=== PATIENT | female | born 1955 | race American Indian/Alaskan Native ===

== ENCOUNTER 2017-11-10 01:09 | Emergency (ER) | payer OTHER ==
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
--- NOTE | 2017-11-10 02:31 | Cat Scan Report ---
FINAL REPORT EXAM: CT HEAD/BRAIN WO CON HISTORY: fall TECHNIQUE: Routine axial imaging was obtained of the brain without IV contrast. FINDINGS: There is mild generalized atrophy. There no evidence of intracranial hemorrhage or infarct. The ventricular system is appropriate in size and is symmetric. The basal cisterns appear normal. The soft tissues reveal a large hematoma overlying the left pre frontal region of the skull extending over the left preseptal area. There is no evidence of skull fracture. The sinuses are clear. The mastoid air cells are well pneumatized IMPRESSION: Large left pre frontal and preseptal soft tissue hematoma. No skull fracture. Bdox-ey-koeknato atrophy. No evidence of intracranial hemorrhage or infarct.
[2017-11-10 02:40] LABS: Basophils % (Auto) 0.5 % (0.0-1.8); Eosinophils % (Auto) 0.4 % (0.0-4.3); Lymphocytes # (Auto) 2.2 K/mm3 (1.2-5.4); Lymphocytes % (Auto) 26.7 % (13.4-35.0); Mean Corpuscular HGB Conc 33 % (30-34); Mean Corpuscular Hemoglobin 35 pg (28-32); Mean Corpuscular Volume 105 fl (79-97); Monocytes # (Auto) 0.5 K/mm3 (0.0-0.8); Monocytes % (Auto) 5.5 % (0.0-7.3); Platelet Count 317 K/mm3 (140-440); Red Blood Count 3.72 M/mm3 (3.65-5.03); Red Cell Distribution Width 13.1 % (13.2-15.2)
[2017-11-10 02:53] LABS: BUN/Creatinine Ratio 23; Blood Urea Nitrogen 9 mg/dL (7-17); Calcium 8.5 mg/dL (8.4-10.2); Hemolysis Index 7
--- NOTE | 2017-11-10 06:23 | XRay Report ---
FINAL REPORT EXAM: XR SHOULDER 2+V LT HISTORY: Lt shoulder pain TECHNIQUE: Three views of the left shoulder were obtained. FINDINGS: The AC joint and glenohumeral joint appear normal. The subacromial space appears normal. There is no evidence of fracture. The surrounding soft tissues otherwise are unremarkable. IMPRESSION: Within normal limits.
[2017-11-10] MEDS ORDERED: TYLENOL ONE (08:12)
[2017-11-10] MEDS ORDERED: TYLENOL PO ONE (08:18)
[2017-11-10 10:27] LABS: Bacteria,Urine 2+ /HPF (Negative); Bilirubin,Urine NEG (Negative); Blood,Urine SM (Negative); Color,Urine Yellow (Yellow); Mucus,Urine FEW /HPF; Protein,Urine <15 mg/dL mg/dL (Negative); Urobilinogen,Urine < 2.0 mg/dL (<2.0)
[2017-11-10 10:40] LABS: Amphetamine Screen,Urine PRESUMPTIVE NEGATIVE; Benzodiazepines Screen,Urine PRESUMPTIVE NEGATIVE; Cocaine Screen,Urine PRESUMPTIVE NEGATIVE; Methadone Screen,Urine PRESUMPTIVE NEGATIVE; Opiate Screen,Urine PRESUMPTIVE NEGATIVE
[2017-11-10 10:42] VITALS: BP 154/106
[2017-11-10 11:03] LABS: Cannabinoid Screen,Urine PRESUMPTIVE POSITIVE
== END 2017-11-10 14:19 | disposition home or self-care (01) ==
LOC: ED 01:09
DX: S00.83XA Contusion of other part of head, initial encounter (principal); F10.129 Alcohol abuse with intoxication, unspecified; M25.512 Pain in left shoulder; F14.10 Cocaine abuse, uncomplicated; F12.10 Cannabis abuse, uncomplicated; F17.200 Nicotine dependence, unspecified, uncomplicated; Z79.899 Other long term (current) drug therapy; Y08.89XA Assault by other specified means, initial encounter; Y93.89 Activity, other specified; Y99.8 Other external cause status; Y92.89 Other specified places as the place of occurrence of the external cause
CPT/HCPCS: 36415; 70450; 73030; 80048; 80307; 81001; 85025; 99284; G0480; 80320

== ENCOUNTER 2019-07-11 17:55 | Inpatient (IN) | payer OTHER ==
[2019-07-11] MEDS ORDERED: methylPREDNISolone Sod Succinate 125 MG/2 ML INJ IV ONE (18:22)
[2019-07-11] MEDS ORDERED: IPRATROPIUM 0.02% NEBU 2.5 ML IH ONE (18:22)
[2019-07-11] MEDS ORDERED: ALBUTEROL 2.5 MG/3 ML NEBU IH ONE (18:22)
[2019-07-11 19:11] LABS: Basophils # (Auto) 0.1 K/mm3 (0.0-0.1); Basophils % (Auto) 0.5 % (0.0-1.8); Eosinophils % (Auto) 0.1 % (0.0-4.3); Hematocrit 29.7 % (30.3-42.9); Hemoglobin 9.8 gm/dl (10.1-14.3); Lymphocytes # (Auto) 2.3 K/mm3 (1.2-5.4); Lymphocytes % (Auto) 11.5 % (13.4-35.0); Mean Corpuscular HGB Conc 33 % (30-34); Mean Corpuscular Volume 106 fl (79-97); Monocytes # (Auto) 0.8 K/mm3 (0.0-0.8); Monocytes % (Auto) 4.1 % (0.0-7.3); Platelet Count 441 K/mm3 (140-440); Red Blood Count 2.81 M/mm3 (3.65-5.03); Red Cell Distribution Width 14.5 % (13.2-15.2)
[2019-07-11 19:21] LABS: INR 1.59 (0.87-1.13)
[2019-07-11 19:22] LABS: Partial Thromboplastin Time 32.4 Sec. (24.2-36.6)
[2019-07-11 19:32] LABS: Alanine Aminotransferase 29 units/L (7-56); Albumin 3.1 g/dL (3.9-5); BUN/Creatinine Ratio 23; Blood Urea Nitrogen 9 mg/dL (7-17); Calcium 9.4 mg/dL (8.4-10.2); Hemolysis Index 53
--- NOTE | 2019-07-11 19:54 | XRay Report ---
CHEST 1 VIEW 07/11/2019 6:30 PM INDICATION / CLINICAL INFORMATION: SOB, productive cough, CP. COMPARISON: None available. FINDINGS: SUPPORT DEVICES: None. HEART / MEDIASTINUM: Normal heart size. Atherosclerosis in the thoracic aorta. LUNGS / PLEURA: There is hazy airspace disease in the left lower lobe suggestive of pneumonia. No pne umothorax. ADDITIONAL FINDINGS: No significant additional findings. IMPRESSION: 1. Hazy left lower lobe airspace disease suggestive of developing pneumonia. Signer Name: Pavel Mcclure MD Signed: 07/11/2019 7:49 PM Workstation Name: [email or web address]
[2019-07-11] MEDS ORDERED: cefTRIAXone/NS 1 GM/50 ML 1 GM/50 ML BAG IV ONE (20:01)
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
[2019-07-11] MEDS ORDERED: MORPHINE 2 MG/1 ML INJ IV ONE (20:12)
[2019-07-11] MEDS ORDERED: SODIUM CHLORIDE 0.9% 1000 ML 1,000 ML IV ONE (20:41)
[2019-07-11] MEDS ORDERED: POTASSIUM CHLORIDE ER 20 MEQ TAB PO ONE (20:41)
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
[2019-07-11] MEDS ORDERED: AZITHROMYCIN 500 MG in SODIUM CHLORIDE 0.9% 250ML 250 ML IV ONE (21:00)
--- NOTE | 2019-07-11 22:04 | History and Physical Report ---
History of Present Illness Chief complaint: I keep coughing, I think i got pneumonia History of present illness: 64 YO Female with Nicotine Dependence, ETOH Dependence, Polysubstance Abuse, Malnutrition, HTN presents to ED for evaluation. PT states that she has experienced productive cough with yellow sputum, shortness of breath, and subjective fever over the past 1 week with persistent symptoms over the same time frame. Pt acknowledges chest discomfort after coughing episodes. EMS notified and upon arrival the patient was found to be in distress and transported to [facility]. Pt seen and evaluated in ED and found to have Pneumonia, ETOH Intoxication, Acidosis, SIRS, and Severe Malnutrition. Pt admitted to medical floor. Pt initiated on Pneumonia protocol. Pt denies CP, Palpitations, unilateral leg swelling, calf pain, n/v/d, abdominal pain, palpitations. No prior admission for review. All listed medication reconciled at time of admission. Past History Past Medical History: other (See HPI) Past Surgical History: hysterectomy Social history: single, smoking, alcohol abuse Family history: hypertension Medications and Allergies Allergies Allergy/AdvReac Type Severity Reaction Status Date / Time No Known Allergies Allergy Verified 11/10/17 08:52 Home Medications Medication Instructions Recorded Confirmed Last Taken Type Unobtainable 04/20/19 04/20/19 Unknown History Review of Systems Constitutional: fever, no weight loss, no weight gain, no chills, no sweats Ears, nose, mouth and throat: no ear pain, no ear discharge, no tinnitis, no decreased hearing, no nose pain, no nasal congestion, no nasal discharge Breasts: no change in shape, no swelling, no mass Cardiovascular: no chest pain, no orthopnea, no palpitations Respiratory: cough, cough with sputum, no hemoptysis, no pain on inspiration Gastrointestinal: no abdominal pain, no nausea, no vomiting, no diarrhea, no constipation Genitourinary Female: no pelvic pain, no flank pain, no menorrhagia, no dysuria, no urinary frequency, no urgency Rectal: no pain, no incontinence, no bleeding Musculoskeletal: no neck stiffness, no neck pain, no shooting arm pain, no arm numbness/tingling, no low back pain, no shooting leg pain Integumentary: no rash, no pruritis, no redness, no sores, no wounds Neurological: no transient paralysis, no paralysis, no parathesias, no numbness, no tingling, no seizures, no syncope Psychiatric: no anxiety, no memory loss, no change in sleep habits, no sleep disturbances, no insomnia, no hypersomnia, no change in appetite, no change in libido Endocrine: no cold intolerance, no heat intolerance, no polyphagia, no excessive thirst, no polydipsia, no polyuria, no nocturia Hematologic/Lymphatic: no easy bruising, no easy bleeding, no lymphadenopathy, no lymphedema Allergic/Immunologic: no allergic rhinitis, no persistent infections, no anaphylaxis Exam - Constitutional Vitals: Temp Pulse Resp BP Pulse Ox 98.4 F 117 H 32 H 134/77 94 07/11/19 19:10 07/11/19 20:12 07/11/19 20:12 07/11/19 20:12 07/11/19 20:12 General appearance: Present: mild distress, cachectic, disheveled - EENT Eyes: Present: PERRL ENT: hearing intact, clear oral mucosa - Neck Neck: Present: supple, normal ROM - Respiratory Respiratory effort: normal Respiratory: left: diminished - Cardiovascular Heart Sounds: Present: S1 & S2. Absent: rub, click - Extremities Extremities: pulses symmetrical, No edema Peripheral Pulses: within normal limits - Abdominal General gastrointestinal: Present: soft, non-tender, non-distended, normal bowel sounds Female genitourinary: Present: normal - Integumentary Integumentary: Present: clear, warm, dry - Musculoskeletal Musculoskeletal: gait normal, strength equal bilaterally - Psychiatric Psychiatric: appropriate mood/affect, intact judgment & insight - Neurologic Neurologic: CNII-XII intact, moves all extremities Results - Labs CBC & Chem 7: 07/11/19 18:50 07/11/19 18:50 Labs: Abnormal lab results 07/11/19 07/11/19 07/11/19 Range/Units 18:50 18:50 18:50 WBC 19.7 H (4.5-11.0) K/mm3 RBC 2.81 L (3.65-5.03) M/mm3 Hgb 9.8 L (10.1-14.3) gm/dl Hct 29.7 L (30.3-42.9) % MCV 106 H (79-97) fl MCH 35 H (28-32) pg Plt Count 441 H (140-440) K/mm3 Lymph % (Auto) 11.5 L (13.4-35.0) % Seg Neutrophils % 83.8 H (40.0-70.0) % Seg Neutrophils # 16.5 H (1.8-7.7) K/mm3 PT 18.7 H (12.2-14.9) Sec. INR 1.59 H (0.87-1.13) D-Dimer 756.07 H (0-234) ng/mlDDU Potassium 3.0 L (3.6-5.0) mmol/L Carbon Dioxide 17 L (22-30) mmol/L Creatinine 0.4 L (0.7-1.2) mg/dL Glucose 103 H (65-100) mg/dL Albumin 3.1 L (3.9-5) g/dL Plasma/Serum Alcohol (0-0.07) % 07/11/19 Range/Units 18:50 WBC (4.5-11.0) K/mm3 RBC (3.65-5.03) M/mm3 Hgb (10.1-14.3) gm/dl Hct (30.3-42.9) % MCV (79-97) fl MCH (28-32) pg Plt Count (140-440) K/mm3 Lymph % (Auto) (13.4-35.0) % Seg Neutrophils % (40.0-70.0) % Seg Neutrophils # (1.8-7.7) K/mm3 PT (12.2-14.9) Sec. INR (0.87-1.13) D-Dimer (0-234) ng/mlDDU Potassium (3.6-5.0) mmol/L Carbon Dioxide (22-30) mmol/L Creatinine (0.7-1.2) mg/dL Glucose (65-100) mg/dL Albumin (3.9-5) g/dL Plasma/Serum Alcohol 0.26 H (0-0.07) % Assessment and Plan - Patient Problems (1) PNA (pneumonia) Current Visit: Yes Status: Acute Qualifiers: Pneumonia type: due to unspecified organism Laterality: left Lung location: lower lobe of lung Qualified Code(s): J18.9 - Pneumonia, unspecified organism Plan to address problem: Pneumonia protocol: IV antibiotic therapy, supplemental oxygen, nebulizer therapy, pulse oximetry, Chest x ray, CBC, CMP, blood cultures, (2) Acidosis Current Visit: Yes Status: Acute Plan to address problem: IVF resuscitation therapy, repeat bmp in am. (3) SIRS (systemic inflammatory response syndrome) Current Visit: Yes Status: Acute Plan to address problem: IV antibiotic therapy, CBC, CMP, urinalysis, chest x ray, (4) Severe malnutrition Current Visit: Yes Status: Acute Plan to address problem: Encourage increased protein intake, dietary supplementation. (5) Alcohol intoxication Current Visit: Yes Status: Acute Qualifiers: Complication of substance-induced condition: with unspecified complication Qualified Code(s): F10.929 - Alcohol use, unspecified with intoxication, unspecified Plan to address problem: CIWA protocol, Thiamine, folic Acid, multivitamin daily, (6) Polysubstance dependence Current Visit: Yes Status: Acute Plan to address problem: supportive care, Outpatient F/U care with AA (7) DVT prophylaxis Current Visit: Yes Status: Acute Plan to address problem: SCD to BLE while in bed, supportive care.
[2019-07-11] MEDS ORDERED: ALBUTEROL 2.5 MG/3 ML NEBU IH PRN (22:05)
[2019-07-11] MEDS ORDERED: ONDANSETRON 4 MG/2 ML INJ IV PRN (22:05)
--- NOTE | 2019-07-11 22:11 | Event Note ---
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
[2019-07-11] MEDS: FOLIC ACID 1 MG TAB PO SCH (22:31)
[2019-07-11] MEDS: SODIUM CHLORIDE 0.9% 1000 ML 1,000 ML IV SCH (22:33)
[2019-07-11] MEDS: LORazepam 2 MG/ML VIAL IV PRN (22:34)
[2019-07-11] MEDS ORDERED: MULTIVITAMINS ,THERAPEUTIC TAB PO ONE (22:41)
[2019-07-11] MEDS: metroNIDAZOLE/NS 500 MG/100 ML 500 MG/100 ML BAG IV SCH (22:41)
[2019-07-11] MEDS ORDERED: THIAMINE 100 MG TAB PO ONE (22:41)
[2019-07-12] MEDS: SODIUM CHLORIDE 0.9% 1000 ML 1,000 ML IV SCH ×2 (02:03→13:43)
[2019-07-12] MEDS: LORazepam 2 MG/ML VIAL IV PRN (05:01)
[2019-07-12] MEDS: metroNIDAZOLE/NS 500 MG/100 ML 500 MG/100 ML BAG IV SCH ×3 (05:02→21:44)
[2019-07-12] MEDS ORDERED: POTASSIUM CHLORIDE ER 20 MEQ TAB PO ONE (11:48)
--- NOTE | 2019-07-12 11:48 | Progress Note ---
Assessment and Plan (1) PNA (pneumonia) Current Visit: Yes Status: Acute Qualifiers: Pneumonia type: due to unspecified organism Laterality: left Lung location: lower lobe of lung Qualified Code(s): J18.9 - Pneumonia, unspecified organism Plan to address problem: Pneumonia protocol: IV antibiotic therapy, supplemental oxygen, nebulizer therapy, pulse oximetry, Chest x ray, CBC, CMP, blood cultures, On IV ceftriaxone and Zithromax for now Added Duonebs RTC and Prn. (2) Acidosis Current Visit: Yes Status: Acute Plan to address problem: Improving (3) SIRS (systemic inflammatory response syndrome) Current Visit: Yes Status: Acute Plan to address problem: IV antibiotic therapy (4) Severe malnutrition Current Visit: Yes Status: Acute Plan to address problem: Encourage increased protein intake, dietary supplementation. (5) Alcohol intoxication Current Visit: Yes Status: Acute Qualifiers: Complication of substance-induced condition: with unspecified complication Qualified Code(s): F10.929 - Alcohol use, unspecified with intoxication, unspecified Plan to address problem: CIWA protocol, Thiamine, folic Acid, multivitamin daily, (6) Polysubstance dependence Current Visit: Yes Status: Acute Plan to address problem: supportive care, Outpatient F/U care with AA (7)Htn Added Losartan (8)Hypokalemia Supplemented (9) DVT prophylaxis Current Visit: Yes Status: Acute Plan to address problem: SCD to BLE while in bed, supportive care. Subjective Date of service: 07/12/19 Principal diagnosis: Pneumonia and Etoh dependence Interval history: 64 YO Female with Nicotine Dependence, ETOH Dependence, Polysubstance Abuse, Malnutrition, HTN presents to ED for evaluation. PT states that she has experienced productive cough with yellow sputum, shortness of breath, and subjective fever over the past 1 week with persistent symptoms over the same time frame. Pt acknowledges chest discomfort after coughing episodes. EMS notified and upon arrival the patient was found to be in distress and transported to [facility]. Pt seen and evaluated in ED and found to have Pneumonia, ETOH Intoxication, Acidosis, SIRS, and Severe Malnutrition. Pt admitted to medical floor. Pt initiated on Pneumonia protocol. Pt denies CP, Palpitations, unilateral leg swelling, calf pain, n/v/d, abdominal pain, palpitations. No prior admission for review. Patient feels better compared to yesterday.Nervous and tremulous from ETOH withdrawal. Objective - Constitutional Vitals: Vital Signs - 12hr 07/11/19 07/12/19 07/12/19 23:50 00:00 00:10 Temperature Pulse Rate 100 H 98 H 95 H Respiratory 22 24 24 Rate Blood Pressure 111/63 109/64 109/64 O2 Sat by Pulse 99 99 99 Oximetry 07/12/19 07/12/19 07/12/19 00:20 00:30 00:40 Temperature Pulse Rate 94 H 94 H 97 H Respiratory 22 23 22 Rate Blood Pressure 109/64 111/65 111/65 O2 Sat by Pulse 99 99 99 Oximetry 07/12/19 07/12/19 07/12/19 01:00 01:01 06:00 Temperature 97.5 F L 97.9 F Pulse Rate 93 H 104 H Respiratory 22 20 Rate Blood Pressure 111/72 99/60 O2 Sat by Pulse 94 88 93 Oximetry General appearance: Present: mild distress, well-nourished - EENT Eyes: PERRL, EOM intact ENT: hearing intact, clear oral mucosa Ears: bilateral: normal - Neck Neck: supple, normal ROM - Respiratory Respiratory effort: normal Respiratory: bilateral: CTA, rales - Breasts Breasts: normal - Cardiovascular Heart rate: 88 Rhythm: regular Heart Sounds: Present: S1 & S2. Absent: gallop, rub Extremities: pulses intact, No edema, normal color, Full ROM - Gastrointestinal General gastrointestinal: Present: soft, non-tender, non-distended, normal bowel sounds - Genitourinary Female genitourinary: normal - Integumentary Integumentary: clear, warm, dry - Musculoskeletal Musculoskeletal: 1, strength equal bilaterally - Neurologic Neurologic: moves all extremities - Psychiatric Psychiatric: memory intact, appropriate mood/affect, intact judgment & insight - Allied health notes Allied health notes reviewed: nursing, case management - Labs CBC & Chem 7: 07/11/19 18:50 07/11/19 18:50 Labs: Abnormal lab results 07/11/19 07/11/19 07/11/19 Range/Units 18:50 18:50 18:50 WBC 19.7 H (4.5-11.0) K/mm3 RBC 2.81 L (3.65-5.03) M/mm3 Hgb 9.8 L (10.1-14.3) gm/dl Hct 29.7 L (30.3-42.9) % MCV 106 H (79-97) fl MCH 35 H (28-32) pg Plt Count 441 H (140-440) K/mm3 Lymph % (Auto) 11.5 L (13.4-35.0) % Seg Neutrophils % 83.8 H (40.0-70.0) % Seg Neutrophils # 16.5 H (1.8-7.7) K/mm3 PT 18.7 H (12.2-14.9) Sec. INR 1.59 H (0.87-1.13) D-Dimer 756.07 H (0-234) ng/mlDDU Potassium 3.0 L (3.6-5.0) mmol/L Carbon Dioxide 17 L (22-30) mmol/L Creatinine 0.4 L (0.7-1.2) mg/dL Glucose 103 H (65-100) mg/dL Lactic Acid (0.7-2.0) mmol/L Albumin 3.1 L (3.9-5) g/dL Plasma/Serum Alcohol (0-0.07) % 07/11/19 07/11/19 07/11/19 Range/Units 18:50 21:09 23:11 WBC (4.5-11.0) K/mm3 RBC (3.65-5.03) M/mm3 Hgb (10.1-14.3) gm/dl Hct (30.3-42.9) % MCV (79-97) fl MCH (28-32) pg Plt Count (140-440) K/mm3 Lymph % (Auto) (13.4-35.0) % Seg Neutrophils % (40.0-70.0) % Seg Neutrophils # (1.8-7.7) K/mm3 PT (12.2-14.9) Sec. INR (0.87-1.13) D-Dimer (0-234) ng/mlDDU Potassium (3.6-5.0) mmol/L Carbon Dioxide (22-30) mmol/L Creatinine (0.7-1.2) mg/dL Glucose (65-100) mg/dL Lactic Acid 4.20 H* 3.10 H* (0.7-2.0) mmol/L Albumin (3.9-5) g/dL Plasma/Serum Alcohol 0.26 H (0-0.07) % 07/12/19 Range/Units 09:55 WBC (4.5-11.0) K/mm3 RBC (3.65-5.03) M/mm3 Hgb (10.1-14.3) gm/dl Hct (30.3-42.9) % MCV (79-97) fl MCH (28-32) pg Plt Count (140-440) K/mm3 Lymph % (Auto) (13.4-35.0) % Seg Neutrophils % (40.0-70.0) % Seg Neutrophils # (1.8-7.7) K/mm3 PT (12.2-14.9) Sec. INR (0.87-1.13) D-Dimer (0-234) ng/mlDDU Potassium (3.6-5.0) mmol/L Carbon Dioxide (22-30) mmol/L Creatinine (0.7-1.2) mg/dL Glucose (65-100) mg/dL Lactic Acid 2.50 H* (0.7-2.0) mmol/L Albumin (3.9-5) g/dL Plasma/Serum Alcohol (0-0.07) %
[2019-07-12] MEDS ORDERED: IPRATROPIUM/ALBUTEROL SULFATE 3 ML AMPUL.NEB IH PRN (11:55)
[2019-07-12] MEDS ORDERED: LOSARTAN 50 MG TAB PO SCH (13:00)
[2019-07-12] MEDS: cefTRIAXone/NS 2 GM/100 ML 2 GM/100 ML BAG IV SCH (13:39)
[2019-07-12] MEDS: methylPREDNISolone Sod Succinate 125 MG/2 ML INJ IV SCH ×2 (13:39→21:44)
[2019-07-12] MEDS: FOLIC ACID 1 MG TAB PO SCH (13:58)
[2019-07-12] MEDS: IPRATROPIUM/ALBUTEROL SULFATE 3 ML AMPUL.NEB IH SCH ×3 (14:48→21:12)
[2019-07-12] MEDS: ACETAMINOPHEN 325 MG TAB PO PRN (17:04)
[2019-07-12] MEDS: HYDROmorphone 1 MG/1 ML INJ IV PRN ×2 (18:25→21:51)
[2019-07-12] MEDS: AZITHROMYCIN 500 MG in SODIUM CHLORIDE 0.9% 250ML 250 ML IV SCH (18:26)
[2019-07-13] MEDS: HYDROmorphone 1 MG/1 ML INJ IV PRN ×3 (03:39→17:54)
[2019-07-13] MEDS: methylPREDNISolone Sod Succinate 125 MG/2 ML INJ IV SCH ×3 (06:02→22:06)
[2019-07-13] MEDS: metroNIDAZOLE/NS 500 MG/100 ML 500 MG/100 ML BAG IV SCH ×3 (06:03→22:05)
[2019-07-13] MEDS: LOSARTAN 50 MG TAB PO SCH ×2 (06:51→06:53)
[2019-07-13 07:54] LABS: Hematocrit 30.9 % (30.3-42.9); Hemoglobin 10.1 gm/dl (10.1-14.3); Mean Corpuscular HGB Conc 33 % (30-34); Mean Corpuscular Volume 107 fl (79-97); Platelet Count 499 K/mm3 (140-440); Red Blood Count 2.89 M/mm3 (3.65-5.03); Red Cell Distribution Width 14.4 % (13.2-15.2)
[2019-07-13 08:14] LABS: Alanine Aminotransferase 20 units/L (7-56); Albumin 3.3 g/dL (3.9-5); BUN/Creatinine Ratio 33; Blood Urea Nitrogen 10 mg/dL (7-17); Calcium 8.5 mg/dL (8.4-10.2); Hemolysis Index 5
[2019-07-13] MEDS: SODIUM CHLORIDE 0.9% 1000 ML 1,000 ML IV SCH (08:32)
[2019-07-13 09:01] LABS: Band Neutrophils # (Manual) 1.4 K/mm3; Basophils % (Manual) 0 % (0.0-1.8); Eosinophils % (Manual) 0 % (0.0-4.3); Total Cells Counted 100
[2019-07-13 09:02] LABS: RBC Morphology Normal
[2019-07-13] MEDS ORDERED: LOSARTAN 50 MG TAB PO SCH (10:00)
[2019-07-13] MEDS: FOLIC ACID 1 MG TAB PO SCH (10:01)
[2019-07-13] MEDS: cefTRIAXone/NS 2 GM/100 ML 2 GM/100 ML BAG IV SCH (10:02)
[2019-07-13] MEDS: AZITHROMYCIN 500 MG in SODIUM CHLORIDE 0.9% 250ML 250 ML IV SCH (10:02)
--- NOTE | 2019-07-13 11:18 | Progress Note ---
Assessment and Plan Assessment and plan: 64 YO Female with Nicotine Dependence, ETOH Dependence, Polysubstance Abuse, Malnutrition, HTN presents to ED for evaluation. PT states that she has experienced productive cough with yellow sputum, shortness of breath, and subjective fever over the past 1 week with persistent symptoms over the same time frame. Pt acknowledges chest discomfort after coughing episodes. EMS notified and upon arrival the patient was found to be in distress and transported to [facility]. Pt seen and evaluated in ED and found to have Pneumonia, ETOH Intoxication, Acidosis, SIRS, and Severe Malnutrition. Pt admitted to medical floor. Pt initiated on Pneumonia protocol. Pt denies CP, Palpitations, unilateral leg swelling, calf pain, n/v/d, abdominal pain, palpitations. Pneumonia LLL Pneumonia protocol: IV antibiotic therapy with Rocephin and Zithromax , supplemental oxygen, nebulizer therapy, pulse oximetry, Chest x ray, CBC, CMP, blood cultures, Sepsis due to pneumonia On Rocephin and Zithromax Acidosis IVF resuscitation therapy, repeat bmp in am. Severe malnutrition Encourage increased protein intake, dietary supplementation. Hypertensive urgency Add Norvasc to Cozaar Hydralazine iv prn Alcohol intoxication CIWA protocol, Thiamine, folic Acid, multivitamin daily, Polysubstance dependence supportive care, Outpatient F/U care with AA DVT prophylaxis SCD to BLE while in bed, Add Heparin Poss dc in 1-2 days History Interval history: Fever, cough, shortness of breath Hospitalist Physical - Constitutional Vitals: Temp Pulse Resp BP Pulse Ox 97.8 F 97 H 21 183/107 90 07/13/19 05:48 07/13/19 06:53 07/13/19 05:48 07/13/19 06:53 07/13/19 05:50 General appearance: Present: no acute distress - EENT Eyes: Present: PERRL ENT: hearing intact - Neck Neck: Present: supple - Respiratory Respiratory effort: normal Respiratory: left: rales (lower ), negative: rhonchi, wheezing - Cardiovascular Rhythm: regular Heart Sounds: Present: S1 & S2 (S1 and s2 reg, no murmurs) - Extremities Extremities: no ischemia, No edema, normal temperature, normal color - Abdominal General gastrointestinal: soft, non-tender, non-distended, normal bowel sounds - Integumentary Integumentary: Present: clear, warm, dry - Neurologic Neurologic: moves all extremities, other (Awake,alert) Results - Labs CBC & Chem 7: 07/13/19 07:34 07/13/19 07:34 Labs: Laboratory Last Values WBC 16.1 K/mm3 (4.5-11.0) H 07/13/19 07:34 RBC 2.89 M/mm3 (3.65-5.03) L 07/13/19 07:34 Hgb 10.1 gm/dl (10.1-14.3) 07/13/19 07:34 Hct 30.9 % (30.3-42.9) 07/13/19 07:34 MCV 107 fl (79-97) H 07/13/19 07:34 MCH 35 pg (28-32) H 07/13/19 07:34 MCHC 33 % (30-34) 07/13/19 07:34 RDW 14.4 % (13.2-15.2) 07/13/19 07:34 Plt Count 499 K/mm3 (140-440) H 07/13/19 07:34 Lymph % (Auto) 11.5 % (13.4-35.0) L 07/11/19 18:50 Bond % (Auto) 4.1 % (0.0-7.3) 07/11/19 18:50 Eos % (Auto) 0.1 % (0.0-4.3) 07/11/19 18:50 Baso % (Auto) 0.5 % (0.0-1.8) 07/11/19 18:50 Lymph # 2.3 K/mm3 (1.2-5.4) 07/11/19 18:50 Bond # 0.8 K/mm3 (0.0-0.8) 07/11/19 18:50 Eos # 0.0 K/mm3 (0.0-0.4) 07/11/19 18:50 Baso # 0.1 K/mm3 (0.0-0.1) 07/11/19 18:50 Add Manual Diff Complete 07/13/19 07:34 Total Counted 100 07/13/19 07:34 Seg Neutrophils % Bereavement Program Coordinator 07/13/19 07:34 Seg Neuts % (Manual) 86.0 % (40.0-70.0) H 07/13/19 07:34 Band Neutrophils % 9.0 % 07/13/19 07:34 Lymphocytes % (Manual) 3.0 % (13.4-35.0) L 07/13/19 07:34 Reactive Lymphs % (Man) 0 % 07/13/19 07:34 Monocytes % (Manual) 2.0 % (0.0-7.3) 07/13/19 07:34 Eosinophils % (Manual) 0 % (0.0-4.3) 07/13/19 07:34 Basophils % (Manual) 0 % (0.0-1.8) 07/13/19 07:34 Metamyelocytes % 0 % 07/13/19 07:34 Myelocytes % 0 % 07/13/19 07:34 Promyelocytes % 0 % 07/13/19 07:34 Blast Cells % 0 % 07/13/19 07:34 Nucleated RBC % Not Reportable 07/13/19 07:34 Seg Neutrophils # 16.5 K/mm3 (1.8-7.7) H 07/11/19 18:50 Seg Neutrophils # Man 13.8 K/mm3 (1.8-7.7) H 07/13/19 07:34 Band Neutrophils # 1.4 K/mm3 07/13/19 07:34 Lymphocytes # (Manual) 0.5 K/mm3 (1.2-5.4) L 07/13/19 07:34 Abs React Lymphs (Man) 0.0 K/mm3 07/13/19 07:34 Monocytes # (Manual) 0.3 K/mm3 (0.0-0.8) 07/13/19 07:34 Eosinophils # (Manual) 0.0 K/mm3 (0.0-0.4) 07/13/19 07:34 Basophils # (Manual) 0.0 K/mm3 (0.0-0.1) 07/13/19 07:34 Metamyelocytes # 0.0 K/mm3 07/13/19 07:34 Myelocytes # 0.0 K/mm3 07/13/19 07:34 Promyelocytes # 0.0 K/mm3 07/13/19 07:34 Blast Cells # 0.0 K/mm3 07/13/19 07:34 WBC Morphology Not Reportable 07/13/19 07:34 Hypersegmented Neuts Not Reportable 07/13/19 07:34 Hyposegmented Neuts Not Reportable 07/13/19 07:34 Hypogranular Neuts Not Reportable 07/13/19 07:34 Smudge Cells Not Reportable 07/13/19 07:34 Toxic Granulation Not Reportable 07/13/19 07:34 Toxic Vacuolation Not Reportable 07/13/19 07:34 Dohle Bodies Not Reportable 07/13/19 07:34 Pelger-Huet Anomaly Not Reportable 07/13/19 07:34 Rita Rods Not Reportable 07/13/19 07:34 Platelet Estimate Not Reportable 07/13/19 07:34 Clumped Platelets Not Reportable 07/13/19 07:34 Plt Clumps, EDTA Not Reportable 07/13/19 07:34 Large Platelets Not Reportable 07/13/19 07:34 Giant Platelets Not Reportable 07/13/19 07:34 Platelet Satelliting Not Reportable 07/13/19 07:34 Plt Morphology Comment Not Reportable 07/13/19 07:34 RBC Morphology Normal 07/13/19 07:34 Dimorphic RBCs Not Reportable 07/13/19 07:34 Polychromasia Not Reportable 07/13/19 07:34 Hypochromasia Not Reportable 07/13/19 07:34 Poikilocytosis Not Reportable 07/13/19 07:34 Anisocytosis Not Reportable 07/13/19 07:34 Microcytosis Not Reportable 07/13/19 07:34 Macrocytosis Not Reportable 07/13/19 07:34 Spherocytes Not Reportable 07/13/19 07:34 Pappenheimer Bodies Not Reportable 07/13/19 07:34 Sickle Cells Not Reportable 07/13/19 07:34 Target Cells Not Reportable 07/13/19 07:34 Tear Drop Cells Not Reportable 07/13/19 07:34 Ovalocytes Not Reportable 07/13/19 07:34 Helmet Cells Not Reportable 07/13/19 07:34 [place] Bodies Not Reportable 07/13/19 07:34 Spicer Rings Not Reportable 07/13/19 07:34 [place] Cells Not Reportable 07/13/19 07:34 Bite Cells Not Reportable 07/13/19 07:34 Crenated Cell Not Reportable 07/13/19 07:34 Elliptocytes Not Reportable 07/13/19 07:34 Acanthocytes (Spur) Not Reportable 07/13/19 07:34 Rouleaux Not Reportable 07/13/19 07:34 Hemoglobin C Crystals Not Reportable 07/13/19 07:34 Schistocytes Not Reportable 07/13/19 07:34 Malaria parasites Not Reportable 07/13/19 07:34 Tod Bodies Not Reportable 07/13/19 07:34 Hem Pathologist Commnt No 07/13/19 07:34 PT 18.7 Sec. (12.2-14.9) H 07/11/19 18:50 INR 1.59 (0.87-1.13) H 07/11/19 18:50 APTT 32.4 Sec. (24.2-36.6) 07/11/19 18:50 D-Dimer 756.07 ng/mlDDU (0-234) H 07/11/19 18:50 Sodium 140 mmol/L (137-145) 07/13/19 07:34 Potassium 4.6 mmol/L (3.6-5.0) D 07/13/19 07:34 Chloride 106.7 mmol/L (98-107) 07/13/19 07:34 Carbon Dioxide 19 mmol/L (22-30) L 07/13/19 07:34 Anion Gap 19 mmol/L 07/13/19 07:34 BUN 10 mg/dL (7-17) 07/13/19 07:34 Creatinine 0.3 mg/dL (0.7-1.2) L 07/13/19 07:34 Estimated GFR > 60 ml/min 07/13/19 07:34 BUN/Creatinine Ratio 33 % 07/13/19 07:34 Glucose 145 mg/dL (65-100) H 07/13/19 07:34 Lactic Acid 2.10 mmol/L (0.7-2.0) H* 07/12/19 23:29 Calcium 8.5 mg/dL (8.4-10.2) 07/13/19 07:34 Total Bilirubin 0.30 mg/dL (0.1-1.2) 07/13/19 07:34 AST 19 units/L (5-40) 07/13/19 07:34 ALT 20 units/L (7-56) 07/13/19 07:34 Alkaline Phosphatase 82 units/L (35-129) 07/13/19 07:34 Troponin T < 0.010 ng/mL (0.00-0.029) 07/11/19 21:09 NT-Pro-B Natriuret Pep 748.0 pg/mL (0-900) 07/11/19 18:50 Total Protein 7.3 g/dL (6.3-8.2) 07/13/19 07:34 Albumin 3.3 g/dL (3.9-5) L 07/13/19 07:34 Albumin/Globulin Ratio 0.8 % 07/13/19 07:34 Plasma/Serum Alcohol 0.26 % (0-0.07) H 07/11/19 18:50 Active Medications - Current Medications Current Medications: Generic Name Dose Route Start Last Admin Trade Name Freq PRN Reason Stop Dose Admin Acetaminophen 650 mg 07/11/19 22:05 07/12/19 17:04 Tylenol PO 650 mg Q4H PRN Administration Pain MILD(1-3)/Fever >100.5/JOHNSON Albuterol/Ipratropium 1 ampul 07/12/19 12:00 07/12/19 21:12 Duoneb *Not For Prn Use* IH 1 ampul QIDRT MIKA Administration Albuterol/Ipratropium 1 ampul 07/12/19 11:55 Duoneb *Not For Prn Use* IH Q3H PRN Wheezing Folic Acid 1 mg 07/11/19 10:00 07/13/19 10:01 Folvite PO 1 mg QDAY MIKA Administration Hydromorphone HCl 0.5 mg 07/12/19 11:55 07/13/19 10:00 Dilaudid IV 0.5 mg Q3H PRN Administration Pain , Severe (7-10) Sodium Chloride 1,000 mls @ 75 mls/hr 07/11/19 23:00 07/13/19 08:32 Nacl 0.9% 1000 Ml IV 75 mls/hr DIRECT MIKA Administration Ceftriaxone Sodium 2 gm in 100 mls @ 200 mls/hr 07/12/19 10:00 07/13/19 10:02 Rocephin/Ns 2 Gm/100 Ml IV 200 mls/hr Q24HR MIKA Administration Protocol Azithromycin 500 mg/ Sodium 250 mls @ 250 mls/hr 07/12/19 10:00 07/13/19 10:02 Chloride IV 250 mls/hr Q24HR MIKA Administration Protocol Metronidazole 500 mg in 100 mls @ 100 mls/hr 07/11/19 22:05 07/13/19 06:03 Flagyl 500 Mg/100 Ml IV 100 mls/hr Q8HR MIKA Administration Protocol Lorazepam 2 mg 07/11/19 22:09 07/12/19 05:01 Ativan IV 2 mg Q1HR PRN Administration CIWA-Ar 8-15 Losartan Potassium 100 mg 07/13/19 06:45 07/13/19 06:53 Cozaar PO Not Given QDAY MIKA Methylprednisolone Sodium Succinate 40 mg 07/12/19 14:00 07/13/19 06:02 Solu-Medrol IV 40 mg Q8HR MIKA Administration Ondansetron HCl 4 mg 07/11/19 22:05 Zofran IV Q8H PRN Nausea And Vomiting Sodium Chloride 10 ml 07/12/19 10:00 07/13/19 10:06 Sodium Chloride Flush Syringe 10 Ml IV Not Given BID MIKA Sodium Chloride 10 ml 07/11/19 22:05 Sodium Chloride Flush Syringe 10 Ml IV PRN PRN LINE FLUSH Nutrition/Malnutrition Assess - Dietary Evaluation Nutrition/Malnutrition Findings: Nutrition Notes Start: 07/12/19 11:37 Freq: Status: Active Protocol: Document 07/12/19 11:37 LM (Rec: 07/12/19 11:44 LM [id number]) Nutrition Notes 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 No kia score in chart. Pt fell asleep during assessment. Pt stated she has had some wt loss (2 lb) before falling asleep. Observed 50% intakes. Nutrition Intervention Follow-Up By: 07/15/19 Additional Comments F/U for assessment needs
[2019-07-13] MEDS: LORazepam 2 MG/ML VIAL IV PRN ×2 (12:04→22:06)
[2019-07-13] MEDS: amLODIPine 5 MG TAB PO SCH (17:44)
[2019-07-13] MEDS: hydrALAZINE 20 MG/1 ML INJ IV PRN (17:45)
[2019-07-13] MEDS: IPRATROPIUM/ALBUTEROL SULFATE 3 ML AMPUL.NEB IH SCH ×4 (18:09→19:53)
[2019-07-14] MEDS: HYDROmorphone 1 MG/1 ML INJ IV PRN ×3 (01:43→21:21)
[2019-07-14] MEDS: methylPREDNISolone Sod Succinate 125 MG/2 ML INJ IV SCH ×3 (05:31→21:14)
[2019-07-14] MEDS: LORazepam 2 MG/ML VIAL IV PRN (05:31)
[2019-07-14] MEDS: HEPARIN 5,000 UNIT/1 ML VIAL SUB-Q SCH ×3 (05:32→21:13)
[2019-07-14] MEDS: SODIUM CHLORIDE 0.9% 1000 ML 1,000 ML IV SCH (05:42)
[2019-07-14] MEDS: metroNIDAZOLE/NS 500 MG/100 ML 500 MG/100 ML BAG IV SCH ×3 (05:44→21:17)
[2019-07-14] MEDS: hydrALAZINE 20 MG/1 ML INJ IV PRN (06:59)
[2019-07-14] MEDS: IPRATROPIUM/ALBUTEROL SULFATE 3 ML AMPUL.NEB IH SCH ×3 (08:02→20:54)
[2019-07-14] MEDS ORDERED: ALBUTEROL 2.5 MG/3 ML NEBU IH PRN (08:07)
[2019-07-14 09:37] LABS: Hematocrit 31.7 % (30.3-42.9); Hemoglobin 10.5 gm/dl (10.1-14.3); Mean Corpuscular HGB Conc 33 % (30-34); Mean Corpuscular Volume 107 fl (79-97); Platelet Count 474 K/mm3 (140-440); Red Blood Count 2.96 M/mm3 (3.65-5.03); Red Cell Distribution Width 14.9 % (13.2-15.2)
[2019-07-14] MEDS: amLODIPine 5 MG TAB PO SCH (09:53)
[2019-07-14 09:54] LABS: BUN/Creatinine Ratio 33; Blood Urea Nitrogen 13 mg/dL (7-17); Calcium 8.5 mg/dL (8.4-10.2); Hemolysis Index 8
[2019-07-14] MEDS: LOSARTAN 50 MG TAB PO SCH (09:54)
[2019-07-14] MEDS: FOLIC ACID 1 MG TAB PO SCH (09:54)
[2019-07-14] MEDS: cefTRIAXone/NS 2 GM/100 ML 2 GM/100 ML BAG IV SCH (11:25)
[2019-07-14] MEDS: AZITHROMYCIN 500 MG in SODIUM CHLORIDE 0.9% 250ML 250 ML IV SCH (12:56)
--- NOTE | 2019-07-14 13:38 | Progress Note ---
Assessment and Plan Assessment and plan: Pneumonia LLL Pneumonia protocol: IV antibiotic therapy with Rocephin and Zithromax Cont. supplemental oxygen, nebulizer therapy, pulse oximetry, Chest x ray, CBC, CMP, blood cultures, Sepsis due to pneumonia On Rocephin and Zithromax WBC better Severe malnutrition Encourage increased protein intake, dietary supplementation. Hypertensive urgency Add Norvasc to Cozaar Hydralazine iv prn Alcohol intoxication CIWA protocol, Thiamine, folic Acid, multivitamin daily, Polysubstance dependence supportive care, Outpatient F/U care with AA DVT prophylaxis SCD to BLE while in bed, Add Heparin D/C in am History Interval history: 64 YO Female with Nicotine Dependence, ETOH Dependence, Polysubstance Abuse, Malnutrition, HTN presents to ED for evaluation. PT states that she has experienced productive cough with yellow sputum, shortness of breath, and cedeno bjective fever over the past 1 week with persistent symptoms over the same time frame. Pt acknowledges chest discomfort after coughing episodes. EMS notified and upon arrival the patient was found to be in distress and transported to [facility]. Pt seen and evaluated in ED and found to have Pneumonia, ETOH Intoxication, Acidosis, SIRS, and Severe Malnutrition. Pt admitted to medical floor. Pt initiated on Pneumonia protocol. Pt denies CP, Palpitations, unilateral leg swelling, calf pain, n/v/d, abdominal pain, palpitations. Hospitalist Physical - Constitutional Vitals: Temp Pulse Resp BP Pulse Ox 98.2 F 110 H 20 158/101 93 07/14/19 11:48 07/14/19 13:22 07/14/19 13:22 07/14/19 11:48 07/14/19 11:48 General appearance: Present: no acute distress - EENT Eyes: Present: PERRL, EOM intact ENT: hearing intact, clear oral mucosa, dentition normal - Neck Neck: Present: supple, normal ROM - Respiratory Respiratory effort: normal Respiratory: bilateral: CTA - Cardiovascular Rhythm: regular Heart Sounds: Present: S1 & S2. Absent: gallop, rub - Extremities Extremities: no ischemia, No edema, Full ROM - Abdominal General gastrointestinal: soft, non-tender, non-distended, normal bowel sounds - Integumentary Integumentary: Present: clear, warm, dry - Neurologic Neurologic: CNII-XII intact, moves all extremities Results - Labs CBC & Chem 7: 07/14/19 08:31 07/14/19 08:31 Labs: Laboratory Last Values WBC 11.7 K/mm3 (4.5-11.0) H 07/14/19 08:31 RBC 2.96 M/mm3 (3.65-5.03) L 07/14/19 08:31 Hgb 10.5 gm/dl (10.1-14.3) 07/14/19 08:31 Hct 31.7 % (30.3-42.9) 07/14/19 08:31 MCV 107 fl (79-97) H 07/14/19 08:31 MCH 36 pg (28-32) H 07/14/19 08:31 MCHC 33 % (30-34) 07/14/19 08:31 RDW 14.9 % (13.2-15.2) 07/14/19 08:31 Plt Count 474 K/mm3 (140-440) H 07/14/19 08:31 Lymph % (Auto) 11.5 % (13.4-35.0) L 07/11/19 18:50 [place] % (Auto) 4.1 % (0.0-7.3) 07/11/19 18:50 Eos % (Auto) 0.1 % (0.0-4.3) 07/11/19 18:50 Baso % (Auto) 0.5 % (0.0-1.8) 07/11/19 18:50 Lymph # 2.3 K/mm3 (1.2-5.4) 07/11/19 18:50 [place] # 0.8 K/mm3 (0.0-0.8) 07/11/19 18:50 Eos # 0.0 K/mm3 (0.0-0.4) 07/11/19 18:50 Baso # 0.1 K/mm3 (0.0-0.1) 07/11/19 18:50 Add Manual Diff Complete 07/13/19 07:34 Total Counted 100 07/13/19 07:34 Seg Neutrophils % Massotherapist 07/13/19 07:34 Seg Neuts % (Manual) 86.0 % (40.0-70.0) H 07/13/19 07:34 Band Neutrophils % 9.0 % 07/13/19 07:34 Lymphocytes % (Manual) 3.0 % (13.4-35.0) L 07/13/19 07:34 Reactive Lymphs % (Man) 0 % 07/13/19 07:34 Monocytes % (Manual) 2.0 % (0.0-7.3) 07/13/19 07:34 Eosinophils % (Manual) 0 % (0.0-4.3) 07/13/19 07:34 Basophils % (Manual) 0 % (0.0-1.8) 07/13/19 07:34 Metamyelocytes % 0 % 07/13/19 07:34 Myelocytes % 0 % 07/13/19 07:34 Promyelocytes % 0 % 07/13/19 07:34 Blast Cells % 0 % 07/13/19 07:34 Nucleated RBC % Not Reportable 07/13/19 07:34 Seg Neutrophils # 16.5 K/mm3 (1.8-7.7) H 07/11/19 18:50 Seg Neutrophils # Man 13.8 K/mm3 (1.8-7.7) H 07/13/19 07:34 Band Neutrophils # 1.4 K/mm3 07/13/19 07:34 Lymphocytes # (Manual) 0.5 K/mm3 (1.2-5.4) L 07/13/19 07:34 Abs React Lymphs (Man) 0.0 K/mm3 07/13/19 07:34 Monocytes # (Manual) 0.3 K/mm3 (0.0-0.8) 07/13/19 07:34 Eosinophils # (Manual) 0.0 K/mm3 (0.0-0.4) 07/13/19 07:34 Basophils # (Manual) 0.0 K/mm3 (0.0-0.1) 07/13/19 07:34 Metamyelocytes # 0.0 K/mm3 07/13/19 07:34 Myelocytes # 0.0 K/mm3 07/13/19 07:34 Promyelocytes # 0.0 K/mm3 07/13/19 07:34 Blast Cells # 0.0 K/mm3 07/13/19 07:34 WBC Morphology Not Reportable 07/13/19 07:34 Hypersegmented Neuts Not Reportable 07/13/19 07:34 Hyposegmented Neuts Not Reportable 07/13/19 07:34 Hypogranular Neuts Not Reportable 07/13/19 07:34 Smudge Cells Not Reportable 07/13/19 07:34 Toxic Granulation Not Reportable 07/13/19 07:34 Toxic Vacuolation Not Reportable 07/13/19 07:34 Dohle Bodies Not Reportable 07/13/19 07:34 Pelger-Huet Anomaly Not Reportable 07/13/19 07:34 Rita Rods Not Reportable 07/13/19 07:34 Platelet Estimate Not Reportable 07/13/19 07:34 Clumped Platelets Not Reportable 07/13/19 07:34 Plt Clumps, EDTA Not Reportable 07/13/19 07:34 Large Platelets Not Reportable 07/13/19 07:34 Giant Platelets Not Reportable 07/13/19 07:34 Platelet Satelliting Not Reportable 07/13/19 07:34 Plt Morphology Comment Not Reportable 07/13/19 07:34 RBC Morphology Normal 07/13/19 07:34 Dimorphic RBCs Not Reportable 07/13/19 07:34 Polychromasia Not Reportable 07/13/19 07:34 Hypochromasia Not Reportable 07/13/19 07:34 Poikilocytosis Not Reportable 07/13/19 07:34 Anisocytosis Not Reportable 07/13/19 07:34 Microcytosis Not Reportable 07/13/19 07:34 Macrocytosis Not Reportable 07/13/19 07:34 Spherocytes Not Reportable 07/13/19 07:34 Pappenheimer Bodies Not Reportable 07/13/19 07:34 Sickle Cells Not Reportable 07/13/19 07:34 Target Cells Not Reportable 07/13/19 07:34 Tear Drop Cells Not Reportable 07/13/19 07:34 Ovalocytes Not Reportable 07/13/19 07:34 Helmet Cells Not Reportable 07/13/19 07:34 [place] Bodies Not Reportable 07/13/19 07:34 [place] Rings Not Reportable 07/13/19 07:34 [place] Cells Not Reportable 07/13/19 07:34 Bite Cells Not Reportable 07/13/19 07:34 Crenated Cell Not Reportable 07/13/19 07:34 Elliptocytes Not Reportable 07/13/19 07:34 Acanthocytes (Spur) Not Reportable 07/13/19 07:34 Rouleaux Not Reportable 07/13/19 07:34 Hemoglobin C Crystals Not Reportable 07/13/19 07:34 Schistocytes Not Reportable 07/13/19 07:34 Malaria parasites Not Reportable 07/13/19 07:34 Tod Bodies Not Reportable 07/13/19 07:34 Hem Pathologist Commnt No 07/13/19 07:34 PT 18.7 Sec. (12.2-14.9) H 07/11/19 18:50 INR 1.59 (0.87-1.13) H 07/11/19 18:50 APTT 32.4 Sec. (24.2-36.6) 07/11/19 18:50 D-Dimer 756.07 ng/mlDDU (0-234) H 07/11/19 18:50 Sodium 141 mmol/L (137-145) 07/14/19 08:31 Potassium 4.2 mmol/L (3.6-5.0) 07/14/19 08:31 Chloride 105.4 mmol/L (98-107) 07/14/19 08:31 Carbon Dioxide 17 mmol/L (22-30) L 07/14/19 08:31 Anion Gap 23 mmol/L 07/14/19 08:31 BUN 13 mg/dL (7-17) 07/14/19 08:31 Creatinine 0.4 mg/dL (0.7-1.2) L 07/14/19 08:31 Estimated GFR > 60 ml/min 07/14/19 08:31 BUN/Creatinine Ratio 33 % 07/14/19 08:31 Glucose 122 mg/dL (65-100) H 07/14/19 08:31 Lactic Acid 2.10 mmol/L (0.7-2.0) H* 07/12/19 23:29 Calcium 8.5 mg/dL (8.4-10.2) 07/14/19 08:31 Total Bilirubin 0.30 mg/dL (0.1-1.2) 07/13/19 07:34 AST 19 units/L (5-40) 07/13/19 07:34 ALT 20 units/L (7-56) 07/13/19 07:34 Alkaline Phosphatase 82 units/L (35-129) 07/13/19 07:34 Troponin T < 0.010 ng/mL (0.00-0.029) 07/11/19 21:09 NT-Pro-B Natriuret Pep 748.0 pg/mL (0-900) 07/11/19 18:50 Total Protein 7.3 g/dL (6.3-8.2) 07/13/19 07:34 Albumin 3.3 g/dL (3.9-5) L 07/13/19 07:34 Albumin/Globulin Ratio 0.8 % 07/13/19 07:34 Plasma/Serum Alcohol 0.26 % (0-0.07) H 07/11/19 18:50 Active Medications - Current Medications Current Medications: Generic Name Dose Route Start Last Admin Trade Name Freq PRN Reason Stop Dose Admin Acetaminophen 650 mg 07/11/19 22:05 07/12/19 17:04 Tylenol PO 650 mg Q4H PRN Administration Pain MILD(1-3)/Fever >100.5/JOHNSON Albuterol 2.5 mg 07/14/19 08:07 Proventil IH Q4HRT PRN Shortness Of Breath Albuterol/Ipratropium 1 ampul 07/14/19 14:00 07/14/19 13:22 Duoneb *Not For Prn Use* 1 ampul TIDRT MIKA Administration Amlodipine Besylate 5 mg 07/13/19 18:00 07/14/19 09:53 Amlodipine PO 5 mg QDAY MIKA Administration Arformoterol Tartrate 15 mcg 07/14/19 20:00 Brovana Nebu Q12HRT MIKA Budesonide 0.5 mg 07/14/19 20:00 Pulmicort IH Q12HRT MIKA Folic Acid 1 mg 07/11/19 10:00 07/14/19 09:54 Folvite PO 1 mg QDAY MIKA Administration Heparin Sodium (Porcine) 5,000 unit 07/14/19 06:00 07/14/19 05:32 Heparin SUB-Q 5,000 unit Q8HR MIKA Administration Hydralazine HCl 10 mg 07/13/19 17:18 07/14/19 06:59 Apresoline IV 10 mg Q4HR PRN Administration SBP>170 or DBP>110 Hydromorphone HCl 0.5 mg 07/12/19 11:55 07/14/19 11:27 Dilaudid IV 0.5 mg Q3H PRN Administration Pain , Severe (7-10) Sodium Chloride 1,000 mls @ 75 mls/hr 07/11/19 23:00 07/14/19 05:42 Nacl 0.9% 1000 Ml IV 75 mls/hr DIRECT MIKA Administration Ceftriaxone Sodium 2 gm in 100 mls @ 200 mls/hr 07/12/19 10:00 07/14/19 11:25 Rocephin/Ns 2 Gm/100 Ml IV 200 mls/hr Q24HR MIKA Administration Protocol Azithromycin 500 mg/ Sodium 250 mls @ 250 mls/hr 07/12/19 10:00 07/14/19 12:56 Chloride IV 250 mls/hr Q24HR MIKA Administration Protocol Metronidazole 500 mg in 100 mls @ 100 mls/hr 07/11/19 22:05 07/14/19 05:44 Flagyl 500 Mg/100 Ml IV 100 mls/hr Q8HR MIKA Administration Protocol Lorazepam 2 mg 07/11/19 22:09 07/14/19 05:31 Ativan IV 2 mg Q1HR PRN Administration CIWA-Ar 8-15 Losartan Potassium 100 mg 07/13/19 06:45 07/14/19 09:54 Cozaar PO 100 mg QDAY MIKA Administration Methylprednisolone Sodium Succinate 40 mg 07/12/19 14:00 07/14/19 05:31 Solu-Medrol IV 40 mg Q8HR MIKA Administration Ondansetron HCl 4 mg 07/11/19 22:05 07/13/19 12:03 Zofran IV 4 mg Q8H PRN Administration Nausea And Vomiting Sodium Chloride 10 ml 07/12/19 10:00 07/14/19 11:43 Sodium Chloride Flush Syringe 10 Ml IV Not Given BID MIKA Sodium Chloride 10 ml 07/11/19 22:05 Sodium Chloride Flush Syringe 10 Ml IV PRN PRN LINE FLUSH Nutrition/Malnutrition Assess - Dietary Evaluation Nutrition/Malnutrition Findings: Nutrition Notes Start: 07/12/19 11:37 Freq: Status: Active Protocol: Document 07/12/19 11:37 LM (Rec: 07/12/19 11:44 LM [id number]) Nutrition Notes 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 No kia score in chart. Pt fell asleep during assessment. Pt stated she has had some wt loss (2 lb) before falling asleep. Observed 50% intakes. Nutrition Intervention Follow-Up By: 07/15/19 Additional Comments F/U for assessment needs
[2019-07-14] MEDS: ACETAMINOPHEN 325 MG TAB PO PRN (15:46)
[2019-07-14] MEDS: BUDESONIDE 0.5 MG/2 ML NEBU IH SCH (20:53)
[2019-07-14] MEDS: ARFORMOTEROL 15 MCG/2 ML NEBU IH SCH (20:54)
[2019-07-15] MEDS: LORazepam 2 MG/ML VIAL IV PRN (00:10)
[2019-07-15] MEDS: metroNIDAZOLE/NS 500 MG/100 ML 500 MG/100 ML BAG IV SCH ×2 (06:20→13:26)
[2019-07-15] MEDS: methylPREDNISolone Sod Succinate 125 MG/2 ML INJ IV SCH ×2 (06:21→13:38)
[2019-07-15] MEDS: HEPARIN 5,000 UNIT/1 ML VIAL SUB-Q SCH ×2 (06:22→13:26)
[2019-07-15] MEDS: HYDROmorphone 1 MG/1 ML INJ IV PRN (08:38)
[2019-07-15] MEDS: IPRATROPIUM/ALBUTEROL SULFATE 3 ML AMPUL.NEB IH SCH (09:29)
[2019-07-15] MEDS: ARFORMOTEROL 15 MCG/2 ML NEBU IH SCH (09:30)
[2019-07-15] MEDS: BUDESONIDE 0.5 MG/2 ML NEBU IH SCH (09:30)
[2019-07-15] MEDS: amLODIPine 5 MG TAB PO SCH (09:59)
[2019-07-15] MEDS: FOLIC ACID 1 MG TAB PO SCH (09:59)
[2019-07-15] MEDS: LOSARTAN 50 MG TAB PO SCH (09:59)
[2019-07-15] MEDS: cefTRIAXone/NS 2 GM/100 ML 2 GM/100 ML BAG IV SCH (10:00)
[2019-07-15] MEDS: SODIUM CHLORIDE 0.9% 1000 ML 1,000 ML IV SCH (10:03)
--- NOTE | 2019-07-15 10:05 | Discharge Summary ---
Providers - Providers Date of Admission: 07/11/19 22:05 Date of discharge: 07/15/19 Attending physician: JESSICA SHIELDS Primary care physician: SUPERVISOR [employer] Hospitalization Reason for admission: pna Condition: Fair Hospital course: 64 YO Female with Nicotine Dependence, ETOH Dependence, Polysubstance Abuse, Malnutrition, HTN presents to ED for evaluation. 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 Pt acknowledged chest discomfort after coughing episodes. EMS notified and upon arrival the patient was found to be in distress and transported to [facility]. Pt seen and evaluated in ED and found to have Pneumonia, ETOH Intoxication, Acidosis, sepsis, and Severe Malnutrition. Pt admitted to medical floor. Pt initiated on Pneumonia protocol. The patient has significant improvement with IV antibiotics and leukocytosis resolved with WBC returned to near normal range. Patient was felt to have received maximal hospital benefit and will be discharged home. Dedicated discharge time 32 minutes. Disposition: DC- TO HOME OR SELFCARE Time spent for discharge: 32 - Discharge Diagnoses (1) Sepsis Status: Acute (2) Acidosis Status: Acute (3) Alcohol intoxication Status: Acute Qualifiers: Complication of substance-induced condition: with unspecified complication Qualified Code(s): F10.929 - Alcohol use, unspecified with intoxication, unspecified (4) PNA (pneumonia) Status: Acute Qualifiers: Pneumonia type: due to unspecified organism Laterality: left Lung location: lower lobe of lung Qualified Code(s): J18.9 - Pneumonia, unspecified organism Core Measure Documentation - Palliative Care Palliative Care/ Comfort Measures: Not Applicable - Core Measures Any of the following diagnoses?: none Exam - Constitutional Vitals: Temp Pulse Resp BP Pulse Ox 98.5 F 100 H 18 167/100 98 07/14/19 23:40 07/15/19 09:31 07/15/19 09:31 07/14/19 23:40 07/14/19 23:40 General appearance: Present: no acute distress, well-nourished - EENT Eyes: Present: PERRL ENT: hearing intact, clear oral mucosa - Neck Neck: Present: supple, normal ROM - Respiratory Respiratory effort: normal Respiratory: bilateral: CTA - Cardiovascular Heart Sounds: Present: S1 & S2. Absent: rub, click - Extremities Extremities: pulses symmetrical, No edema Peripheral Pulses: within normal limits - Abdominal General gastrointestinal: Present: soft, non-tender, non-distended, normal bowel sounds Female genitourinary: Present: normal - Integumentary Integumentary: Present: clear, warm, dry - Musculoskeletal Musculoskeletal: gait normal, strength equal bilaterally - Psychiatric Psychiatric: appropriate mood/affect, intact judgment & insight - Neurologic Neurologic: CNII-XII intact, moves all extremities Plan Activity: advance as tolerated Weight Bearing Status: Weight Bear as Tolerated Follow up with: PRIMARY CARE, [Primary Care Provider] - 3-5 Days Prescriptions: amLODIPine 10 mg PO QDAY #30 tablet cefUROXime [Ceftin] 500 mg PO Q12H #14 tablet Folic Acid [Folvite] 1 mg PO QDAY #30 tablet oxyCODONE /ACETAMINOPHEN [Percocet 5/325] 1 tab PO Q4HR #6 tab
[2019-07-15] MEDS: AZITHROMYCIN 500 MG in SODIUM CHLORIDE 0.9% 250ML 250 ML IV SCH (10:14)
[2019-07-15 13:43] VITALS: BP 159/97
== END 2019-07-15 13:35 | disposition home or self-care (01) | DRG 871 ==
LOC: ED 17:55 → 3A 22:05 → OBSVTOIN 22:05 → 3A 23:46
PROVIDERS: ADMIT Internal Medicine; ATTEND Hospitalist
DX: A41.9 Sepsis, unspecified organism (principal); J18.9 Pneumonia, unspecified organism; E43 Unspecified severe protein-calorie malnutrition; F19.20 Other psychoactive substance dependence, uncomplicated; F17.200 Nicotine dependence, unspecified, uncomplicated; F10.229 Alcohol dependence with intoxication, unspecified; I10 Essential (primary) hypertension; I16.0 Hypertensive urgency; E87.6 Hypokalemia; Z90.710 Acquired absence of both cervix and uterus; Z68.22 Body mass index [BMI] 22.0-22.9, adult; Z82.49 Family history of ischemic heart disease and other diseases of the circulatory system; Z72.89 Other problems related to lifestyle
CPT/HCPCS: 36415; 71045; 71275; 80048; 80053; 80320; 82140; 83880; 84484; 85007; 85025; 85027; 85379; 85610; 85730; 87040; 93005; 93010; 94640; 94644; 94760; G0378; G0480; J0360; J0456; J0696; J1170; J1644; J2060; J2270; J2405; J2930; J7030; J7050; Q9967

== ENCOUNTER 2020-11-25 10:51 | Emergency (ER) | payer SELFPAY ==
[2020-11-25 11:12] VITALS: BP 176/101
--- NOTE | 2020-11-25 11:44 | Emergency Department Report ---
ED General Adult HPI - General Chief complaint: Skin/Abscess/Foreign Body Stated complaint: SI Time Seen by Provider: 11/25/20 11:38 Source: patient Mode of arrival: Ambulatory Limitations: No Limitations - History of Present Illness Initial comments: Patient is a 65-year-old female presents emergency room with complaints of diffuse itching that began couple weeks ago. She states that she went to [facility] due to chest pain and reports that she was admitted in the hospital and stayed for 3 days and she was also evaluated for her rash at that time, she states that she was given a prescription for permethrin but continues to have the itching. She states that she is also been taking Benadryl without much relief. She states that the itching is driving her crazy. She explicitly denies any thoughts of wanting to hurt herself or others, she has no suicidal thoughts or homicidal thoughts. She states that the itching is just keeping her up at night. She denies any chest pain, fever, nausea, vomiting, diarrhea, shortness of breath, abdominal pain. She has a past medical history of hypertension. No allergies medications. She denies any facial swelling, difficulty swallowing, difficulty breathing. She denies any new soaps, lotions, detergents, medications that she is aware of. - Related Data Previous Rx's Medication Instructions Recorded Last Taken Type ALPRAZolam [Xanax TAB] 0.25 mg PO BID PRN #20 tab 07/15/19 Unknown Rx Arformoterol Nebu [Brovana Nebu] 15 mcg IH Q12HRT ml 07/15/19 Unknown Rx Budesonide [Pulmicort Respules] 0.5 mg IH Q12HRT nebu 07/15/19 Unknown Rx Folic Acid [Folvite] 1 mg PO QDAY #30 tablet 07/15/19 Unknown Rx Losartan [Cozaar] 100 mg PO QDAY tablet 07/15/19 Unknown Rx amLODIPine 10 mg PO QDAY #30 tablet 07/15/19 Unknown Rx cefUROXime [Ceftin] 500 mg PO Q12H #14 tablet 07/15/19 Unknown Rx oxyCODONE /ACETAMINOPHEN [Percocet 1 tab PO Q4HR #6 tab 07/15/19 Unknown Rx 5/325] Hydrocortisone 1% [Hydrocortisone 1 applicatio TP TID #1 tube 11/25/20 Unknown Rx 1% CREAM] Loratadine 10 mg PO DAILY #14 tablet 11/25/20 Unknown Rx hydrOXYzine HCL [Atarax] 25 mg PO Q6HR PRN #14 tablet 11/25/20 Unknown Rx Allergies Allergy/AdvReac Type Severity Reaction Status Date / Time No Known Allergies Allergy Verified 11/10/17 08:52 ED Review of Systems ROS: Stated complaint: SI Other details as noted in HPI Comment: All other systems reviewed and negative ED Past Medical Hx - Past Medical History Previous Medical History?: Yes Hx Hypertension: Yes Hx Congestive Heart Failure: No Hx Diabetes: No Hx Asthma: No Hx COPD: Yes Hx HIV: No - Surgical History Past Surgical History?: Yes Additional Surgical History: hyst - Social History Smoking Status: Current Every Day Smoker Substance Use Type: Alcohol - Medications Home Medications: Home Medications Medication Instructions Recorded Confirmed Last Taken Type ALPRAZolam [Xanax TAB] 0.25 mg PO BID PRN #20 tab 07/15/19 Unknown Rx Arformoterol Nebu [Brovana Nebu] 15 mcg IH Q12HRT ml 07/15/19 Unknown Rx Budesonide [Pulmicort Respules] 0.5 mg IH Q12HRT nebu 07/15/19 Unknown Rx Folic Acid [Folvite] 1 mg PO QDAY #30 tablet 07/15/19 Unknown Rx Losartan [Cozaar] 100 mg PO QDAY tablet 07/15/19 Unknown Rx amLODIPine 10 mg PO QDAY #30 tablet 07/15/19 Unknown Rx cefUROXime [Ceftin] 500 mg PO Q12H #14 tablet 07/15/19 Unknown Rx oxyCODONE /ACETAMINOPHEN [Percocet 1 tab PO Q4HR #6 tab 07/15/19 Unknown Rx 5/325] Hydrocortisone 1% [Hydrocortisone 1 applicatio TP TID #1 tube 11/25/20 Unknown Rx 1% CREAM] Loratadine 10 mg PO DAILY #14 tablet 11/25/20 Unknown Rx hydrOXYzine HCL [Atarax] 25 mg PO Q6HR PRN #14 tablet 11/25/20 Unknown Rx ED Physical Exam - General Limitations: No Limitations General appearance: alert, in no apparent distress - Head Head exam: Present: atraumatic, normocephalic - Eye Eye exam: Present: normal appearance - ENT ENT exam: Present: mucous membranes moist - Respiratory Respiratory exam: Present: normal lung sounds bilaterally. Absent: respiratory distress, wheezes, rales, rhonchi, stridor, chest wall tenderness, accessory muscle use, decreased breath sounds, prolonged expiratory - Cardiovascular Cardiovascular Exam: Present: regular rate, normal rhythm, normal heart sounds. Absent: systolic murmur, diastolic murmur, rubs, gallop - Neurological Exam Neurological exam: Present: alert, oriented X3 - Psychiatric Psychiatric exam: Present: normal affect, normal mood - Skin Skin exam: Present: warm, dry, other (there are small patches of dry skin and hyperpigmentation, there are excoriations from frequent scratching, there are a few scattered small erythematous papules, no involvement of the webs of the fingers) ED Course Vital Signs 11/25/20 11:10 Temperature 98.4 F Pulse Rate 105 H Respiratory 20 Rate Blood Pressure 176/101 O2 Sat by Pulse 99 Oximetry ED Medical Decision Making - Medical Decision Making Patient is a 65-year-old female presents emergency room with complaints of diffuse itching that began couple weeks ago. She states that she went to [facility] due to chest pain and reports that she was admitted in the hospital and stayed for 3 days and she was also evaluated for her rash at that time, she states that she was given a prescription for permethrin but continues to have the itching. She states that she is also been taking Benadryl without much relief. She states that the itching is driving her crazy. She explicitly denies any thoughts of wanting to hurt herself or others, she has no suicidal thoughts or homicidal thoughts. She states that the itching is just keeping her up at night. She denies any chest pain, fever, nausea, vomiting, diarrhea, shortness of breath, abdominal pain. She has a past medical history of hypertension. No allergies medications. She denies any facial swelling, difficulty swallowing, difficulty breathing. She denies any new soaps, lotions, detergents, medications that she is aware of. Vitals with mildly elevated blood pressure, patient states that she has not yet taken her blood pressure medication, advised to take her medication and to follow-up with a primary care doctor. On exam: there are small patches of dry skin and hyperpigmentation, there are excoriations from frequent scratching, there are a few scattered small erythematous papules, no involvement of the webs of the fingers. No signs of emergent skin rash or drug eruption. Given prescription for hydroxyzine, hydrocortisone, loratadine. Advised patient Please use medication as prescribed. Follow-up with your primary care doctor. Return to emergency room for new or worsening symptoms. Critical care attestation.: If time is entered above; I have spent that time in minutes in the direct care of this critically ill patient, excluding procedure time. ED Disposition Clinical Impression: Rash, Pruritus Disposition: TO HOME OR SELFCARE Is pt being admited?: No Does the pt Need Aspirin: No Condition: Stable Instructions: Pruritus, Rash, Adult, [id number] Additional Instructions: Please use medication as prescribed. Follow-up with your primary care doctor. Return to emergency room for new or worsening symptoms. Prescriptions: hydrOXYzine HCL [Atarax] 25 mg PO Q6HR PRN #14 tablet PRN Reason: Itching Hydrocortisone 1% [Hydrocortisone 1% CREAM] 1 applicatio TP TID #1 tube Loratadine 10 mg PO DAILY #14 tablet Referrals: DANO FRANK MD [Staff Physician] - 2-3 Days [facility] [Provider Group] - 2-3 Days [facility], [LAB/CONTRACT] - 2-3 Days [facility] [Outside] - 2-3 Days Time of Disposition: 11:45 Print Language: GREENLAND[place]
== END 2020-11-25 12:18 | disposition home or self-care (01) ==
LOC: ED 10:51
DX: L29.9 Pruritus, unspecified (principal); I10 Essential (primary) hypertension; J44.9 Chronic obstructive pulmonary disease, unspecified; F17.200 Nicotine dependence, unspecified, uncomplicated; Z79.899 Other long term (current) drug therapy
CPT/HCPCS: 99281

== ENCOUNTER 2021-04-30 13:01 | Emergency (ER) | payer SELFPAY ==
[2021-04-30] MEDS ORDERED: KETOROLAC 30 MG/1 ML INJ IV ONE (13:08)
--- NOTE | 2021-04-30 13:08 | Emergency Department Report ---
ED General Adult HPI - General Stated complaint: PELVIC PAIN Time Seen by Provider: 04/30/21 13:07 - History of Present Illness Initial comments: Patient presented by ambulance secondary to left hip pain. This is atraumatic as far she can recall. She has been having pain in the left hip area for 7 or 8 days. It starts in the inguinal area and radiates around to the posterior hip. Is only left-sided. She states that she could not take the pain any longer and that is why she called an ambulance to come in. Pain is sharp and stabbing. It is worse with palpation. It is worse with movement of the hip. Again, there is no known trauma that she can recall. She states that she could have fallen but just does not remember. She has no nausea or vomiting. There is no dysuria frequency. There is no history of cough or congestion. - Related Data Previous Rx's Medication Instructions Recorded Last Taken Type ALPRAZolam [Xanax TAB] 0.25 mg PO BID PRN #20 tab 07/15/19 Unknown Rx Arformoterol Nebu [Brovana Nebu] 15 mcg IH Q12HRT ml 07/15/19 Unknown Rx Budesonide [Pulmicort Respules] 0.5 mg IH Q12HRT nebu 07/15/19 Unknown Rx Folic Acid [Folvite] 1 mg PO QDAY #30 tablet 07/15/19 Unknown Rx Losartan [Cozaar] 100 mg PO QDAY tablet 07/15/19 Unknown Rx amLODIPine 10 mg PO QDAY #30 tablet 07/15/19 Unknown Rx cefUROXime [Ceftin] 500 mg PO Q12H #14 tablet 07/15/19 Unknown Rx oxyCODONE /ACETAMINOPHEN [Percocet 1 tab PO Q4HR #6 tab 07/15/19 Unknown Rx 5/325] Hydrocortisone 1% [Hydrocortisone 1 applicatio TP TID #1 tube 11/25/20 Unknown Rx 1% CREAM] Loratadine 10 mg PO DAILY #14 tablet 11/25/20 Unknown Rx hydrOXYzine HCL [Atarax] 25 mg PO Q6HR PRN #14 tablet 11/25/20 Unknown Rx Lidocaine [Lidoderm] 1 each TP DAILY #30 adh..patch 04/30/21 Unknown Rx Allergies Allergy/AdvReac Type Severity Reaction Status Date / Time No Known Allergies Allergy Verified 11/10/17 08:52 ED Review of Systems ROS: Stated complaint: PELVIC PAIN Other details as noted in HPI ED Past Medical Hx - Past Medical History Hx Hypertension: Yes Hx Congestive Heart Failure: No Hx Diabetes: No Hx Asthma: No Hx COPD: Yes Hx HIV: No - Surgical History Additional Surgical History: hyst - Social History Smoking Status: Current Every Day Smoker Substance Use Type: Alcohol - Medications Home Medications: Home Medications Medication Instructions Recorded Confirmed Last Taken Type ALPRAZolam [Xanax TAB] 0.25 mg PO BID PRN #20 tab 07/15/19 Unknown Rx Arformoterol Nebu [Brovana Nebu] 15 mcg IH Q12HRT ml 07/15/19 Unknown Rx Budesonide [Pulmicort Respules] 0.5 mg IH Q12HRT nebu 07/15/19 Unknown Rx Folic Acid [Folvite] 1 mg PO QDAY #30 tablet 07/15/19 Unknown Rx Losartan [Cozaar] 100 mg PO QDAY tablet 07/15/19 Unknown Rx amLODIPine 10 mg PO QDAY #30 tablet 07/15/19 Unknown Rx cefUROXime [Ceftin] 500 mg PO Q12H #14 tablet 07/15/19 Unknown Rx oxyCODONE /ACETAMINOPHEN [Percocet 1 tab PO Q4HR #6 tab 07/15/19 Unknown Rx 5/325] Hydrocortisone 1% [Hydrocortisone 1 applicatio TP TID #1 tube 11/25/20 Unknown Rx 1% CREAM] Loratadine 10 mg PO DAILY #14 tablet 11/25/20 Unknown Rx hydrOXYzine HCL [Atarax] 25 mg PO Q6HR PRN #14 tablet 11/25/20 Unknown Rx Lidocaine [Lidoderm] 1 each TP DAILY #30 adh..patch 04/30/21 Unknown Rx ED Course Vital Signs 04/30/21 04/30/21 04/30/21 13:48 13:53 14:09 Temperature 98.9 F 98.9 F Pulse Rate 89 89 Respiratory 14 14 Rate Blood Pressure 165/99 Blood Pressure 165/99 [Left] O2 Sat by Pulse 95 95 95 Oximetry 04/30/21 14:10 Temperature 98.9 F Pulse Rate 89 Respiratory 14 Rate Blood Pressure Blood Pressure 165/99 [Left] O2 Sat by Pulse 95 Oximetry - Reevaluation(s) Reevaluation #1: 04/30/21 13:08 EMS was met upon arrival. X-rays and UA were ordered. Reevaluation #2: 04/30/21 14:14 Radiographs were noted. UA is pending. Reevaluation #3: 04/30/21 14:59 Labs of been noted. Patient was discharged. ED Medical Decision Making - Medical Decision Making Patient presented secondary to hip pain. There was no history of trauma to suggest fracture or dislocation. Radiographically, there is no evidence of pathologic fracture. She had no osteolytic lesion. Patient had no urinary tract infection. There is no blood in the urine to suggest hematuria and kidney stone. Patient did not have any other joint pain or arthralgia. She was treated symptomatically and referred for outpatient evaluation and follow-up. Critical Care Time: No Critical care attestation.: If time is entered above; I have spent that time in minutes in the direct care of this critically ill patient, excluding procedure time. ED Disposition Clinical Impression: Left hip pain Disposition: HOME / SELF CARE / HOMELESS Is pt being admited?: No Does the pt Need Aspirin: No Condition: Stable Instructions: Hip Pain Additional Instructions: Try ice and heat. Drink plenty of water. Return for problems. Follow-up with your regular doctor for recheck. Prescriptions: Lidocaine [Lidoderm] 1 each TP DAILY #30 adh..patch
--- NOTE | 2021-04-30 13:49 | XRay Report ---
Left hip-2 views INDICATION: lt hip pain. COMPARISON: None. IMPRESSION: No acute osseous abnormality. Soft tissues are normal. Normal alignment. 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 Signer Name: Edvin Penaloza MD Signed: 04/30/2021 1:44 PM Workstation Name: [id number]
[2021-04-30 13:53] VITALS: BP 165/99
[2021-04-30 14:15] LABS: Bilirubin,Urine NEG (Negative); Blood,Urine NEG (Negative); Color,Urine Yellow (Yellow); Mucus,Urine FEW /HPF; Protein,Urine <15 mg/dL mg/dL (Negative)
[2021-04-30] MEDS ORDERED: traMADol 50 MG TAB PO ONE (15:08)
== END 2021-04-30 15:39 | disposition home or self-care (01) ==
LOC: ED 13:01
DX: M25.552 Pain in left hip (principal); I10 Essential (primary) hypertension; J44.9 Chronic obstructive pulmonary disease, unspecified; F17.200 Nicotine dependence, unspecified, uncomplicated
CPT/HCPCS: 73502; 81001; 96374; 99284; J1885

== ENCOUNTER 2021-09-06 08:28 | Outpatient (CLI) | payer OTHER ==
--- NOTE | 2021-09-06 10:35 | XRay Report ---
LUMBAR SPINE 3 VIEWS INDICATION / CLINICAL INFORMATION: BACK PAIN. COMPARISON: CT the abdomen and pelvis dated 02/16/2021 FINDINGS: VERTEBRAE: No acute fracture. No significant malalignment. DISC SPACES / FACET JOINTS:There is [id number] scattered degenerative disc disease, most pronou nced at L5-S1. There is degenerative facet disease at L4-L5 and L5-S1. PARASPINAL SOFT TISSUES:Calcification overlying left renal fossa consistent with renal stone. Calcifi c atherosclerosis ADDITIONAL FINDINGS: None. Signer Name: Juan Carlos Fulton DO Signed: 09/06/2021 10:30 AM Workstation Name: [id number]
== END 2021-09-06 08:29 | disposition home or self-care (01) ==
LOC: XRAY 08:28
PROVIDERS: ATTEND Internal Medicine
DX: M51.37 Other intervertebral disc degeneration, lumbosacral region (principal); M47.817 Spondylosis without myelopathy or radiculopathy, lumbosacral region
CPT/HCPCS: 72100